=== PATIENT | male | born 1985 | race Caucasian/White ===

== ENCOUNTER 2019-05-27 10:00 | Emergency (ER) | payer OTHER ==
[2019-05-27] MEDS: LORAZEPAM 1 MG TAB PO (10:42)
== END 2019-05-27 11:54 | disposition home or self-care (01) ==
LOC: FTE 10:00
DX: F41.9 Anxiety disorder, unspecified (principal); Z87.891 Personal history of nicotine dependence
CPT/HCPCS: 71045; 82962; 93005; 99284-25